=== PATIENT | female | born 1945 | race Two or more races ===

== ENCOUNTER 2020-08-19 07:36 | Day surgery (SDC) | payer OTHER | END 2020-08-19 14:15 | disposition home or self-care (01) | LOC: AMB-ENDOS 07:36 | PROVIDERS: ATTEND Surgery | DX: K62.89 Other specified diseases of anus and rectum (principal); Z20.828 Contact with and (suspected) exposure to other viral communicable diseases ==

== ENCOUNTER → 2021-06-23 08:00 | Outpatient (CLI) | payer OTHER ==
[~2021-06-23 08:00] MED LIST: PROVASTATIN
== END | disposition home or self-care (01) ==
LOC: LAB 08:00 → EDSTATUS 06-27 10:15 → SURH 06-27 10:15
PROVIDERS: ATTEND Surgery
DX: I10 Essential (primary) hypertension (principal); K59.02 Outlet dysfunction constipation; K57.32 Diverticulitis of large intestine without perforation or abscess without bleeding; Z03.818 Encounter for observation for suspected exposure to other biological agents ruled out

== ENCOUNTER 2022-02-27 11:15 | Inpatient (IN) | payer OTHER ==
[~2022-02-27] VITALS: Ht 154.9 cm; Wt 63.0 kg
[2022-02-27] MEDS ORDERED: ZETIA10 MG PO (13:28)
[2022-02-27] MEDS ORDERED: ATACAND32 MG PO (13:29)
[2022-03-01] MEDS ORDERED: AMLODIPINE BESYL5 MG (15:11)
[2022-03-01] MEDS ORDERED: VITAMIN D31250 MCG (15:11)
[2022-03-01] MEDS ORDERED: PRAVASTATIN SOD40 MG (15:11)
[2022-03-01] MEDS ORDERED: BIOTIN5 M1 (15:11)
[2022-03-01] MEDS ORDERED: HYDROCHLOROTH12.5 MG (15:11)
[2022-03-01] MEDS ORDERED: VITAMIN E200 UNI2 (15:12)
[2022-03-01] MEDS ORDERED: ESOMEPRAZOLE MA40 MG (15:12)
[2022-03-01] MEDS ORDERED: LEVOCETIRIZINE D5 MG (15:12)
[2022-03-01] MEDS ORDERED: SPIRIVA RESPIMAT4 GM (15:12)
[2022-03-01] MEDS ORDERED: FAMOTIDINE40 MG (15:12)
[2022-03-01] MEDS ORDERED: ST. JOSEPH ASPI81 M2 (15:13)
[2022-03-01] MEDS ORDERED: SYSTANE ULTRA 010 ML (15:13)
[2022-03-03] MEDS ORDERED: PERCOCET 5-3251 EACH PO (18:34)
== END 2022-03-03 19:32 | disposition home or self-care (01) | DRG 331 ==
LOC: O/R 03-01 05:31 → SURG 03-01 05:31 → SURH 03-01 07:00 → SURG 03-01 17:23
PROVIDERS: ADMIT Surgery; ATTEND Surgery
PROC: 0DBN4ZZ Excision of Sigmoid Colon, Percutaneous Endoscopic Approach (ICD-10-PCS; 2022-03-01)
PROC: 07BC4ZZ Excision of Pelvis Lymphatic, Percutaneous Endoscopic Approach (ICD-10-PCS; 2022-03-01)
PROC: 0DBP4ZZ Excision of Rectum, Percutaneous Endoscopic Approach (ICD-10-PCS; principal; 2022-03-01 07:00)
DX: K57.32 Diverticulitis of large intestine without perforation or abscess without bleeding (principal); K59.02 Outlet dysfunction constipation; N73.6 Female pelvic peritoneal adhesions (postinfective); Z20.822 Contact with and (suspected) exposure to COVID-19